=== PATIENT | male | born 1975 | race Caucasian/White ===

== ENCOUNTER 2024-08-05 07:50 | Day surgery (SDC) | payer OTHER ==
[2024-07-29 08:46] VITALS: BP 134/82
[~2024-08-05] VITALS: Ht 185.4 cm; Wt 134.1 kg
[~2024-08-05 07:50] MED LIST: B COMPLETE1 EACH PO; CYCLOBENZAPRINE10 MG PO; DAYPRO600 MG PO; FOLIC ACID0.4 MG PO; HYDROCODON-ACE1 EA10 PO; IBLOOD GLUCOSE TEST STRIP 1 EA TEST VI PRN; LACTATED RINGER'S 1,000 ML IV SCH; LEVOTHYROXINE200 MCG PO; LIDOCAINE HCL 1% 5 ML SDV INJ ONE; LISINOPRIL10 MG PO; MIDAZOLAM HCL 5 MG/5 ML VIAL IV PRN; NORCO 10-325 T1 EACH PO; PERCOCET 10-321 EACH PO; PREDNISONE20 MG PO; VITAMIN C500 M1 PO; fentaNYL citrate 100 MCG/2 ML VIAL IV PRN
[2024-08-05 07:59] VITALS: BP 138/74
[2024-08-05] MEDS ORDERED: LISINOPRIL5 MG PO (08:05)
[2024-08-05] MEDS ORDERED: ZYRTEC10 MG PO (08:07)
[2024-08-05] MEDS ORDERED: LIDOCAINE HCL 2% 5 ML SDV ONE (09:30)
[2024-08-05] MEDS ORDERED: propofoL 200 MG/20 ML VIAL ONE (09:30)
[2024-08-05] MEDS ORDERED: fentaNYL citrate 100 MCG/2 ML VIAL ONE (09:30)
[2024-08-05] MEDS ORDERED: KETAMINE in NS 50 MG/5 ML SYR ONE (09:38)
[2024-08-05] MEDS ORDERED: ePHEDrine sulfate 50 MG/ML AMP ONE (09:47)
--- NOTE | 2024-08-05 10:32 | NUR ---
08/05/24 1032 Beverly Horton 1014-PATIENT ARRIVED TO PACU ON 6L MASK NONAROUSABLE ORAL AIRWAY IN PLACE. PATIENT LAYING LEFT LATERAL. IVF INFUSING. SR. ABDOMEN SOFT. PATIENT BECOMING REACTIVE TO VERBAL STIMULI OPENING EYES AND ORAL AIRWAY REMOVED 6L MASK RR EVEN ORIENTED TO PACU. PER IVETTE EPIDEMIOLOGIST DO NOT NEED TO RECHECK GLUCOSE 1025-PATIENT AWAKE DENIES PAIN OR NAUSEA. PLACED ON RA RR EVEN. HOB ELEVATED. GLUCOSE CHECKED PER PATIENTS REQUEST 86. PATIENT REPORTS "CAN GET ANGRY WHEN LESS THAN 90" PATIENT DENIES SYMPTOMS. REQUESTING JUICE PATIENT DRANK FULL CUP OF ORANGE JUICE. 1030-PATIENT AWAKE DENIES PAIN OR NAUSEA. DR. DIAS AT BEDSIDE TALKING TO PATIENT. RA 97% RR EVEN
[2024-08-05 10:40] VITALS: BP 126/77
--- NOTE | 2024-08-07 11:31 | OR ---
[facility] [address], [place] [address] Signed DATE OF OPERATION: 08/05/2024 SURGEON: Eve Dias MD PREOPERATIVE DIAGNOSIS: Screening. POSTOPERATIVE DIAGNOSES: 1. Long redundant colon. 2. Minimal to moderate internal hemorrhoids. PROCEDURE: Colonoscopy without biopsy. ESTIMATED BLOOD LOSS: None. INDICATIONS: Donnell is a 49-year-old gentleman, asked to see me for his initial screening colonoscopy. Since I have seen him in the remote past, he has lost over 90 pounds intentionally. He said he quit drinking alcohol and that really helped. His hemoglobin A1c has dropped into the normal range. He no longer needs any medications for diabetes. He said he has been very careful about what he eats. He basically is eating and he eats small portions. He needs a little hydrocodone once in a while for his back. He also has sleep apnea. He has a full face, mendoza as well. Despite his weight loss, he remains a very large man. Consequently, we did ask for monitored anesthesia care today with propofol infusion. That proved to be very helpful. Donnell told me he has no lower GI complaints. There is no family history of colon cancer or polyps. He remains concerned about some scar tissue after we repaired the laparoscopic trocar incisional hernia just above the umbilicus. He can feel that scar tissue now he has lost significant weight. In the office, I gave him a pamphlet on colonoscopy. We had reviewed the nature of the test. There is risk including, but not limited to gas bloating, crampy abdominal pain, bleeding, perforation requiring surgery, and missed diagnosis. We also reviewed the written instructions for the bowel prep line by line. Of course, there are items to choose with and without sugar. He understands an adult person has to take him home afterwards. That usually is his . He had expressed understanding and wished to proceed. PROCEDURE IN DETAIL: Donnell was taken into our endoscopy suite and placed in the left lateral decubitus Electronically Signed By: EVE DIAS MD 08/07/24 1131 PATIENT NAME: DONNELL PURCELL OPERATIVE REPORT DATE OF : 77 REPORT #: [id number] PHYSICIAN: EVE DIAS MD PCP: DAR BRANNON MD REPORT IS CONFIDENTIAL AND NOT TO BE RELEASED WITHOUT AUTHORIZATION [facility] [address] [place] [id number] Signed position. 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 A digital rectal exam was performed and this was unremarkable. He really had very little if any in the way of external hemorrhoids. He had good sphincter tone. There were no masses. The adult colonoscope was introduced and advanced under direct visualization of the camera. It took some abdominal compression and little extra propofol to work our way around up to the proximal right colon. I could easily see the ileocecal valve. I could not quite see behind the ileocecal valve. We tried various maneuvers and we never could get the scope to pass any further. His prep was quite good. The scope was then slowly withdrawn. He had no pathology throughout the entire colon. However, he does have a long redundant colon. There was no diverticulosis. There were no polyps. In the rectum, the scope was retroflexed and he has minimal to moderate standard internal hemorrhoid columns. After this, the gas was suctioned out and the colonoscope removed. Donnell tolerated his procedure quite well. RECOMMENDATIONS: Donnell can follow up in 10 years for repeat screening colonoscopy. Eve Dias MD ALB/MODL /[id number] cc: MD Dar Castaneda MD Copies: EVE DIAS MD, ROBERT D DMD ~ Electronically Signed By: EVE DIAS MD 08/07/24 1131 PATIENT NAME: DONNELL PURCELL OPERATIVE REPORT DATE OF : 77 REPORT #: [id number] PHYSICIAN: EVE DIAS MD PCP: DAR BRANNON MD REPORT IS CONFIDENTIAL AND NOT TO BE RELEASED WITHOUT AUTHORIZATION
== END 2024-08-05 10:50 | disposition home or self-care (01) ==
LOC: DS 07:50
PROVIDERS: ATTEND Colon & Rectal Surgery
PROC: 0DJD8ZZ Inspection of Lower Intestinal Tract, Via Natural or Artificial Opening Endoscopic (ICD-10-PCS; principal; 2024-08-05 09:30)
DX: Z12.11 Encounter for screening for malignant neoplasm of colon (principal); K64.8 Other hemorrhoids; K63.89 Other specified diseases of intestine; I10 Essential (primary) hypertension; E11.9 Type 2 diabetes mellitus without complications; E03.9 Hypothyroidism, unspecified; G47.33 Obstructive sleep apnea (adult) (pediatric); E66.9 Obesity, unspecified; Z68.38 Body mass index [BMI] 38.0-38.9, adult; Z79.52 Long term (current) use of systemic steroids; Z79.890 Hormone replacement therapy; Z88.0 Allergy status to penicillin; Z88.1 Allergy status to other antibiotic agents; Z90.49 Acquired absence of other specified parts of digestive tract
CPT/HCPCS: 00812; J2001; J2704; J3010; J3490; J7121